=== PATIENT | female | born 1960 | race Caucasian/White ===

== ENCOUNTER 2019-02-12 11:15 | Emergency (ER) | payer BC, OTHER ==
[~2019-02-12 11:15] MED LIST: AMLO-476 PO; GAB300 PO; KET10 PO; LIDO700A25 TP; LOR5 PO; METXL50 PO; [UNRECOGNIZED DRUG - CODE] PO; [UNRECOGNIZED DRUG - REMARK]
--- NOTE | 2019-02-12 11:22 | ER Report ---
History and Physical Time Seen By MD: 11:22 HPI/ROS CHIEF COMPLAINT: Fall down a hole HISTORY OF PRESENT ILLNESS: This is a 58-year-old female presents to the emergency department for a fall down the klein. Patient states she was at work, was looking over her shoulder did not see the forefoot square open hole that was in the floor, walked into it, fell down roughly 12 feet into the hole onto some piping at the bottom of the hole. Apparently the hole was opened for maintenance. No loss of consciousness, no C-spine tenderness, no visual changes no headache. She does have left shoulder, left humerus, left knee and ankle pain. She also has superficial abrasion and hematoma to the right medial thigh into the hamstring area, she has pain to the right posterior hip into the coccyx and into the lumbar. No thoracic pain. No chest pain or shortness of breath. Admits nausea no vomiting. No chest pain. No recent fevers or chills. REVIEW OF SYSTEMS: Constitutional: No fever, no chills. Eyes: No discharge. ENT: No sore throat. Cardiovascular: No chest pain, no palpitations. Respiratory: No cough, no shortness of breath. Gastrointestinal: As above. Genitourinary: No hematuria. Musculoskeletal: As above. Skin: As above. Neurological: No headache. Allergies: Coded Allergies: meperidine (Verified Allergy, Severe, MIGRAINES, 02/12/19) ciprofloxacin (Verified Allergy, Mild, FLU SYMPTOMS, 02/12/19) Home Meds Active Scripts Oxycodone Hcl/Acetaminophen (PERCOCET 5-325 MG TABLET) 1 Each Tablet, 1 EACH PO Q4-6H PRN for PAIN, #10 TAB Prov:[employer] MANAGEMENT MANAGER-BC 02/12/19 Reported Medications Hydrocodone Bit/Acetaminophen (HYDROCODON-ACETAMINOPHEN 5-325) 1 Each Tablet, 1 EACH PO Q8H, TAB 02/12/19 Amlodipine Besylate/Benazepril (Lotrel 09/05 Capsule) 1 Cap Capsule, 1 CAP PO QDAY, 0 Refills 08/06/09 Estrogens,Conj.,Synthetic A (Cenestin) 0.625 Mg Tablet, 0.625 MG PO, 0 Refills 08/06/09 Discontinued Reported Medications [Pain Med Unknown] No Conflict Check, 0 Refills 9/20/09 Past Medical/Surgical History The patient has a past medical and surgical history of hypertension, arthritis, chronic back pain, hysterectomy, right total knee replacement. Reviewed Nurses Notes: Yes Constitutional Vital Sign - Last 24 Hours 02/12/19 02/12/19 02/12/19 02/12/19 11:15 11:23 11:23 11:30 Temp 98.4 Pulse ??? 106 Resp 18 B/P (MAP) 130/76 130/76 (94) 105/59 (74) Pulse Ox 93 O2 Delivery Room Air 02/12/19 02/12/19 02/12/19 02/12/19 11:50 12:45 13:00 13:24 Pulse 97 B/P (MAP) 102/61 (75) 94/50 (65) Pulse Ox 90 O2 Flow Rate 1.5 Physical Exam General Appearance: The patient is alert, has no immediate need for airway protection and no signs of toxicity. Eyes: Pupils equal and round no pallor or injection. ENT, Mouth: Mucous membranes are moist. Respiratory: There are no retractions, lungs are clear to auscultation. Cardiovascular: Regular rate and rhythm. Gastrointestinal: Abdomen is soft and non tender, no masses, bowel sounds normal. Neurological: Alert and oriented S4. Moving all extremities. Following all commands. No focal neuro deficits. Skin: Contusion and small hematoma to the left upper arm around the tricep, bruising, abrasions and hematoma to the right medial thigh into the hamstring area, bruising noted to the coccyx. Musculoskeletal: Neck is supple non tender. Extremities generalized pain to the left knee, pain to the left medial and lateral malleoli, pain to the left proximal humerus and left shoulder, pain with palpation to the coccyx, lumbar and right posterior hip, no crepitus or obvious deformities identified on any of these injuries. DIFFERENTIAL DIAGNOSIS: After history and physical exam differential diagnosis was considered for contusion, fracture, subluxation, hematoma. Medical Decision Making EKG/Imaging Imaging Location: [facility] - [place] Patient: Melina Bianchi : 1960 Visit/Account:[id number] Date of Sevice: 02/12/2019 4 views left shoulder Indication: Fall, Comparison: Unavailable Findings: Alignment is anatomic in the left shoulder without acute fracture or destructive osseous finding. Visualized left lung and left ribs are unremarkable. IMPRESSION: 1. No acute osseous abnormality left shoulder. Report Dictated By: Dameon Zheng MD at 02/12/2019 12:55 PM Report E-Signed By: Dameon Zheng MD at 02/12/2019 12:56 PM WSN:[facility] Location: [facility] [place] Patient: Melina Bianchi : 1960 Visit/Account:[id number] Date of Sevice: 02/12/2019 Three views of the sacrum and coccyx Indication: Fall, pain Comparison: None available. Findings: Mild, symmetric degenerative changes seen in the SI joints. The pubic rami are intact. No definitive evidence of acute fracture. IMPRESSION: 1. No acute osseous abnormality of the sacrum or coccyx as above. Report Dictated By: Dameon Zheng MD at 02/12/2019 12:58 PM Report E-Signed By: Dameon Zheng MD at 02/12/2019 12:59 PM WSN:[facility] Location: [facility] [place] Patient: Melina Bianchi : 1960 Visit/Account:[id number] Date of Sevice: 02/12/2019 EXAMINATION: Lumbar spine, 4 views 02/12/2019 11:36 AM HISTORY: Fell down a shaft. COMPARISON: Separate plain film evaluations today. No prior comparison imaging FINDINGS: Images include AP, lateral, and both obliques. 5 nonrib-bearing lumbar vertebral levels. Lumbar vertebral body heights are well-preserved without fracture or any compression deformity. Minimal endplate spurring at multiple levels. Lower lumbar and lumbosacral facet arthropathy. No acute- appearing bony finding. Atherosclerotic vascular calcifications. IMPRESSION: No acute bony injury in the lumbar spine. Report Dictated By: Kevon Bonner MD at 02/12/2019 12:59 PM Report E-Signed By: Kevon Bonner MD at 02/12/2019 1:02 PM WSN:[email or web address] Location: [facility] [place] Patient: Melina Bianchi : 1960 Visit/Account:[id number] Date of Sevice: 02/12/2019 Left knee Indication: Fall, pain Comparison: None available Findings: 3 views left knee were obtained. Osseous alignment is anatomic. Mild marginal spurring is seen in the medial and lateral joint compartments. Lateral view demonstrates mild spurring superior articular surface of the patella with mild spurring along the origin of the inferior patellar tendon. No joint effusion. IMPRESSION: 1. Mild tricompartmental degenerative change without acute osseous finding. Report Dictated By: Dameon Zheng MD at 02/12/2019 12:57 PM Report E-Signed By: Dameon Zheng MD at 02/12/2019 12:58 PM WSN:[facility] Location: [facility] [place] Patient: Melina Bianchi : 1960 Visit/Account:[id number] Date of Sevice: 02/12/2019 HUMERUS LEFT COMPARISON: None. HISTORY: fall down a hole TECHNIQUE: 2 views of the left humerus FINDINGS: BONES: No significant arthropathy, fracture, malalignment, or significant osseous lesion in the humerus or visualized proximal forearm bones. The visualized ribs are intact. Shoulder and elbow alignment are within normal limits for humerus film technique. SOFT TISSUES: Small calcification adjacent to the humeral head suggestive of chronic calcific tendinopathy of the left rotator cuff.. No visible soft tissue swelling. EFFUSION: None suggested. OTHER: Negative. IMPRESSION: No acute fracture in the left humerus. Report Dictated By: Ej Forrest at 02/12/2019 12:59 PM Report E-Signed By: Ej Forrest at 02/12/2019 1:00 PM Location: [facility] [place] Patient: Melina Bianchi : 1960 Visit/Account:[id number] Date of Sevice: 02/12/2019 HIP RIGHT COMPARISON: None. HISTORY: fall down a hole TECHNIQUE: 1 AP view of the pelvis and an additional view of the right hip FINDINGS: BONES: The femoral head is normally formed and in good alignment with a normally formed acetabulum. No significant arthropathy, fracture, malalignment, or significant osseous lesion. There is advanced facet joint hypertrophy bilaterally and the visualized lower lumbar spine. The SI joints and pubic s ymphysis are not appreciably widened. SOFT TISSUES: Negative. No visible soft tissue swelling. EFFUSION: None suggested. OTHER: Negative. IMPRESSION: No acute fracture in the pelvis or right hip. Report Dictated By: Ej Forrest at 02/12/2019 1:00 PM Report E-Signed By: Ej Forrest at 02/12/2019 1:02 PM WSN:[email or web address] Location: [facility] [place] Patient: Melina Bianchi : 1960 Visit/Account:[id number] Date of Sevice: 02/12/2019 3 views left ankle Indication: Fall Comparison: None Available Findings: Enthesopathy at the insertion the Achilles tendon. Plantar calcaneal spurring. Mild degenerative spurring medial malleolus. Mortise is symmetric. Talar dome is unremarkable. No fracture or acute destructive osseous finding. IMPRESSION: 1. Degenerative change without acute osseous finding. Report Dictated By: Dameon Zheng MD at 02/12/2019 12:56 PM Report E-Signed By: Dameon Zheng MD at 02/12/2019 12:57 PM WSN:[facility] ED Course/Re-evaluation ED Course March patient was admitted to room. A history and physical obtained. Differential diagnoses were considered. An IV was started. Patient was given 4 mg IV Zofran, 4 mg IV morphine, 0.5 mg of Dilaudid, 1 mg Dilaudid. An x-ray of the left shoulder, left humerus, left knee and ankle, right hip, sacrum and lumbar were all negative for any acute osseous abnormalities. Lidocaine was applied to the abrasions, this did provide relief. The patient had multiple contusions, she is already taking hydrocodone 10 mg, I did give her a very small course of oxycodone. I also told her that she needs to follow-up with her primary care provider next week or [facility] should she have recurrent or worsening symptoms return to the ER, she was also placed in a walking boot in the left foot, given crutches. Patient was also instructed to not work this weekend. She expressed understanding, was agreeable with this plan care and discharged home. Decision to Disposition Date: Feb 12, 2019 Decision to Disposition Time: 14:05 Depart Departure Latest Vital Signs Vital Signs Date Time Temp Pulse Resp B/P (MAP) Pulse Ox O2 Delivery O2 Flow Rate FiO2 02/12/19 13:24 1.5 02/12/19 13:00 94/50 (65) 02/12/19 12:45 97 90 02/12/19 11:23 98.4 18 Room Air Impression: Primary Impression: Fall into hole as cause of accidental injury Additional Impressions: Contusion, multiple sites Hematoma Condition: Improved Disposition: HOME OR SELF-CARE Referrals: JO ANN PERKINS (PCP) New Scripts Oxycodone Hcl/Acetaminophen (PERCOCET 5-325 MG TABLET) 1 Each Tablet 1 EACH PO Q4-6H PRN for PAIN, #10 TAB Prov: BEST SMITH-AUSTYN 02/12/19 Departure Forms: ER Transition Record, Medications Reconciliation, Off Work/School Form, School or Work Release?: Work Number of days to be released: 2 Patient Portal Information Patient Instructions: Abrasion (ED), Contusion in Adults (ED), Fall Prevention (ED), Hematoma (ED) Additional Instructions: There were no fractures identified on Xray. You have many bruises, a hematoma and will be sore for several days. Keep the boot on for comfort. You can try the percocet to see if this will provide additional pain relief, do not take your normal hydrocodone with the percocet. Drink plenty of water. Get plenty of rest. No work this weekend. Follow up with your PCP or [facility] in one week if no improvement. Return to the emergency department for any other concerns or worsening symptoms. Problem Qualifiers BEST SMITH-AUSTYN Feb 12, 2019 11:22
[2019-02-12] MEDS ORDERED: HYDR-385 PO (11:39)
[2019-02-12] MEDS ORDERED: LIDOCAINE 4% 15 GM TUBE TP ONE (11:40)
[2019-02-12] MEDS ORDERED: MORPHINE 4 MG/ML SDV IVP ONE (11:40)
[2019-02-12] MEDS ORDERED: HYDROMORPHONE HCL 1 MG/ML SYRINGE IVP ONE ×2 (12:45→13:40)
[2019-02-12 13:00] VITALS: BP 94/50
--- NOTE | 2019-02-12 13:01 | RADIOLOGY IMAGING REPORT ---
FACILITY: [facility] - [place] PATIENT NAME: Melina Bianchi : 1960 MR: [id number] V: [id number] EXAM DATE: ORDERING PHYSICIAN: BEST SMITH TECHNOLOGIST: Location: [facility] [place] Patient: Melina Bianchi : 1960 Visit/Account:[id number] Date of Sevice: 02/12/2019 4 views left shoulder Indication: Fall, Comparison: Unavailable Findings: Alignment is anatomic in the left shoulder without acute fracture or destructive osseous finding. Vi sualized left lung and left ribs are unremarkable. IMPRESSION: 1. No acute osseous abnormality left shoulder. Report Dictated By: Dameon Zheng MD at 02/12/2019 12:55 PM Report E-Signed By: Dameon Zheng MD at 02/12/2019 12:56 PM WSN:[facility]
--- NOTE | 2019-02-12 13:01 | RADIOLOGY IMAGING REPORT ---
FACILITY: [facility] - [place] PATIENT NAME: Melina Bianchi : 1960 MR: [id number] V: [id number] EXAM DATE: ORDERING PHYSICIAN: BEST SMITH TECHNOLOGIST: Location: [facility] [place] Patient: Melina Bianchi : 1960 Visit/Account:[id number] Date of Sevice: 02/12/2019 3 views left ankle Indication: Fall Comparison: None Available Findings: Enthesopathy at the insertion the Achilles tendon. Plantar calcaneal spurring. Mild degenerative spurring medial malleolus. Mortise is symmetric. Talar dome is unremarkable. No fracture or acute destructive osseous finding. IMPRESSION: 1. Degenerative change without acute osseous finding. Report Dictated By: Dameon Zheng MD at 02/12/2019 12:56 PM Report E-Signed By: Dameon Zheng MD at 02/12/2019 12:57 PM WSN:[facility]
--- NOTE | 2019-02-12 13:03 | RADIOLOGY IMAGING REPORT ---
[place] [facility] [place]: Melina Bianchi : 1960 MR: [id number] V: [id number] EXAM DATE: ORDERING PHYSICIAN: BEST SMITH TECHNOLOGIST: Location: [facility] Patient: Melina Bianchi : 1960 Visit/Account:[id number] Date of Sevice: 02/12/2019 Left knee Indication: Fall, pain Comparison: None available Findings: 3 views left knee were obtained. Osseous alignment is anatomic. Mild marginal spurring is seen in the medial and lateral joint compar tments. Lateral view demonstrates mild spurring superior articular surface of the patella with mild spurring along the origin of the inferior patellar tendon. No joint effusion. IMPRESSION: 1. Mild tricompartmental degenerative change without acute osseous finding. Report Dictated By: Dameon Zheng MD at 02/12/2019 12:57 PM Report E-Signed By: Dameon Zheng MD at 02/12/2019 12:58 PM WSN:[facility]
--- NOTE | 2019-02-12 13:04 | RADIOLOGY IMAGING REPORT ---
FACILITY: [facility] PATIENT NAME: Melina Bianchi : 1960 MR: [id number] V: [id number] EXAM DATE: ORDERING PHYSICIAN: BEST SMITH TECHNOLOGIST: Location: [facility] - [place] Patient: Melina Bianchi : 1960 Visit/Account:[id number] Date of Sevice: 02/12/2019 Three views of the sacrum and coccyx Indication: Fall, pain Comparison: None available. Findings: Mild, symmetric degenerative changes seen in the SI joints. The pubic rami are intact. No definitiv e evidence of acute fracture. IMPRESSION: 1. No acute osseous abnormality of the sacrum or coccyx as above. Report Dictated By: Dameon Zheng MD at 02/12/2019 12:58 PM Report E-Signed By: Dameon Zheng MD at 02/12/2019 12:59 PM WSN:[facility]
--- NOTE | 2019-02-12 13:05 | RADIOLOGY IMAGING REPORT ---
[place] [facility] [place]IENT NAME: Melina Bianchi : 1960 MR: [id number] V: [id number] EXAM DATE: ORDERING PHYSICIAN: BEST SMITH TECHNOLOGIST: Location: [facility] Patient: Melina Bianchi : 1960 Visit/Account:[id number] Date of Sevice: 02/12/2019 HUMERUS LEFT COMPARISON: None. HISTORY: fall down a hole TECHNIQUE: 2 views of the left humerus FINDINGS: BONES: No significant arthropathy, fracture, malalignment, or significant osseous lesion in the rita tanya or visualized proximal forearm bones. The visualized ribs are intact. Shoulder and elbow alignmen t are within normal limits for humerus film technique. SOFT TISSUES: Small calcification adjacent to the humeral head suggestive of chronic calcific tendin opathy of the left rotator cuff.. No visible soft tissue swelling. EFFUSION: None suggested. OTHER: Negative. IMPRESSION: No acute fracture in the left humerus. Report Dictated By: Ej Forrest at 02/12/2019 12:59 PM Report E-Signed By: Ej Forrest at 02/12/2019 1:00 PM WSN:ALEXANDRO
--- NOTE | 2019-02-12 13:06 | RADIOLOGY IMAGING REPORT ---
FACILITY: [facility] PATIENT NAME: Melina Bianchi : 1960 MR: [id number] V: [id number] EXAM DATE: ORDERING PHYSICIAN: BEST SMITH TECHNOLOGIST: Location: [facility] Patient: Melina Bianchi : 1960 Visit/Account:[id number] Date of Sevice: 02/12/2019 HIP RIGHT COMPARISON: None. HISTORY: fall down a hole TECHNIQUE: 1 AP view of the pelvis and an additional view of the right hip FINDINGS: BONES: The femoral head is normally formed and in good alignment with a normally formed acetabulum. No significant arthropathy, fracture, malalignment, or significant osseous lesion. There is advanced facet joint hypertrophy bilaterally and the visualized lower lumbar spine. The SI joints and pubic symphysis are not appreciably widened. SOFT TISSUES: Negative. No visible soft tissue swelling. EFFUSION: None suggested. OTHER: Negative. IMPRESSION: No acute fracture in the pelvis or right hip. Report Dictated By: Ej Forrest at 02/12/2019 1:00 PM Report E-Signed By: Ej Forrest at 02/12/2019 1:02 PM WSN:ALEXANDRO
--- NOTE | 2019-02-12 13:07 | RADIOLOGY IMAGING REPORT ---
FACILITY: [facility] [place] PATIENT NAME: Melina Bianchi : 1960 MR: [id number] V: [id number] EXAM DATE: ORDERING PHYSICIAN: BEST SMITH TECHNOLOGIST: Location: [facility] [place] Patient: Melina Bianchi : 1960 Visit/Account:[id number] Date of Sevice: 02/12/2019 EXAMINATION: Lumbar spine, 4 views 02/12/2019 11:36 AM HISTORY: Fell down a shaft. COMPARISON: Separate plain film evaluations today. No prior comparison imaging FINDINGS: Images include AP, lateral, and both obliques. 5 nonrib-bearing lumbar vertebral levels. Lumbar vertebral body heights are well-preserved without fracture or any compression deformity. Min imal endplate spurring at multiple levels. Lower lumbar and lumbosacral facet arthropathy. No acute -appearing bony finding. Atherosclerotic vascular calcifications. IMPRESSION: No acute bony injury in the lumbar spine. Report Dictated By: Kevon Bonner MD at 02/12/2019 12:59 PM Report E-Signed By: Kevon Bonner MD at 02/12/2019 1:02 PM WSN:[email or web address]
[2019-02-12] MEDS ORDERED: OXYC-865 PO (13:53)
== END 2019-02-12 14:10 | disposition home or self-care (01) ==
LOC: ER 11:20
DX: S40.022A Contusion of left upper arm, initial encounter (principal); W17.2XXA Fall into hole, initial encounter
CPT/HCPCS: 72120; 72220; 73030; 73060; 73502; 73564; 73610; 96374; 96375; 96376; 99284; J1170; J2270; L0172

== ENCOUNTER → 2019-03-03 | Outpatient (CLI) | payer OTHER ==
[~2019-03-03] MED LIST changes: +HYDR-385 PO; +OXYC-865 PO
--- NOTE | 2019-03-03 13:47 | RADIOLOGY IMAGING REPORT ---
FACILITY: [facility] [place] PATIENT NAME: Melina Bianchi : 1960 MR: [id number] V: [id number] EXAM DATE: [id number] ORDERING PHYSICIAN: JO ANN PERKINS TECHNOLOGIST: Location: [facility] Patient: Melina Bianchi : 1960 Visit/Account:[id number] Date of Sevice: 03/03/2019 Exam type: ANKLE 3 VIEW MIN LEFT History: Trauma Comparison: February 12, 2019. Findings: Three views were submitted.. Enthesopathic changes are again seen insertion the Achilles tendon. Th ere is a left plantar calcaneal spur. There is a tiny bony density projecting just anterior to the d istal tibia on the lateral view. This could conceivably represent tiny avulsion fracture fragment. The mortise appears intact. Mild degenerative spurring of the medial malleolus again seen. IMPRESSION: 1. There is a tiny bony density projecting just anterior to the distal left tibia only seen on the l ateral view this could represent a tiny avulsion fracture fragment or possibly a peritendinous calcif ication Other degenerative changes as described Report Dictated By: Iza Valenzuela MD at 03/03/2019 1:24 PM Report E-Signed By: Iza Valenzuela MD at 03/03/2019 1:41 PM WSN:CESAR[facility]
--- NOTE | 2019-03-03 13:47 | RADIOLOGY IMAGING REPORT ---
FACILITY: [facility] - [place] PATIENT NAME: Melina Bianchi : 1960 MR: [id number] V: [id number] EXAM DATE: ORDERING PHYSICIAN: JO ANN PERKINS TECHNOLOGIST: Location: [facility] Patient: Melina Bianchi : 1960 Visit/Account:[id number] Date of Sevice: 03/03/2019 Exam type: HIPS BILATERAL History: Follow-up from fall, hip pain bilaterally Comparison: Arch 2018. Findings: An AP view the pelvis and single additional views of both hips were submitted there is no evidence of acute fracture or dislocation involving either hip. Degenerative changes at the pubic symphysis and visualized lower lumbar spine again noted. IMPRESSION: 1. No evidence of acute fracture-dislocation involving either hip. If the Patient's pain continues MR may be helpful Report Dictated By: Iza Valenzuela MD at 03/03/2019 1:41 PM Report E-Signed By: Iza Valenzuela MD at 03/03/2019 1:44 PM WSN:CESARIO
--- NOTE | 2019-03-03 13:50 | RADIOLOGY IMAGING REPORT ---
FACILITY: [facility] PATIENT NAME: Melina Bianchi : 1960 MR: [id number] V: [id number] EXAM DATE: ORDERING PHYSICIAN: JO ANN PERKINS TECHNOLOGIST: Location: [facility] Patient: Melina Bianchi : 1960 Visit/Account:[id number] Date of Sevice: 03/03/2019 Exam type: HUMERUS LEFT History: Follow-up from fall, painful left humeral mass Comparison: February 12, 2019. Findings: Two views were submitted. Study is limited due to thick overlying soft tissue. No definite fracture or dislocation is seen. IMPRESSION: 1. Limited study due to extensive overlying soft tissue however no gross evidence of acute fracture or dislocation involving the left humerus. If the patient's pain does persist an MR is recommended Report Dictated By: Iza Valenzuela MD at 03/03/2019 1:44 PM Report E-Signed By: Iza Valenzuela MD at 03/03/2019 1:46 PM WSN:CESARIO
--- NOTE | 2019-03-03 13:52 | RADIOLOGY IMAGING REPORT ---
FACILITY: [facility] [place] PATIENT NAME: Melina Bianchi : 1960 MR: [id number] V: [id number] EXAM DATE: ORDERING PHYSICIAN: JO ANN PERKINS TECHNOLOGIST: Location: [facility] [place] Patient: Melina Bianchi : 1960 Visit/Account:[id number] Date of Sevice: 03/03/2019 Exam type: L-SPINE 2 OR 3 VIEW History: Follow-up from fall Comparison: February 12, 2019. Findings: AP and lateral images were submitted There is no evidence of acute fractures or subluxations. There is mild to moderate disc space narrow ing at T12-L1 with anterior spurring. There is mild disc space narrowing at L5-S1. Degenerative fac et joint changes are most prominent from L3 to S1 There are moderate spondylotic changes in the visualized lower thoracic spine. If the patient does h ave pain in the thoracic spine a formal thoracic spine series recommended. Incidental noted are vasc ular calcifications IMPRESSION: 1. Spondylotic changes of the thoracolumbar spine with no gross evidence of acute fractures or sublu xations Report Dictated By: Iza Valenzuela MD at 03/03/2019 1:46 PM Report E-Signed By: Iza Valenzuela MD at 03/03/2019 1:48 PM WSN:CESARIO
== END ==
LOC: RAD 12:14
PROVIDERS: ATTEND Nurse Practitioner Family
DX: S40.022A Contusion of left upper arm, initial encounter (principal); W17.89XD Other fall from one level to another, subsequent encounter
CPT/HCPCS: 72100; 73522

== ENCOUNTER → 2019-05-10 | Outpatient (CLI) | payer OTHER ==
--- NOTE | 2019-05-10 17:54 | RADIOLOGY IMAGING REPORT ---
FACILITY: [facility] - [place] PATIENT NAME: Melina Bianchi : 1960 MR: [id number] V: [id number] EXAM DATE: ORDERING PHYSICIAN: JO ANN PERKINS TECHNOLOGIST: Location: [facility] [place] Patient: Melina Bianchi : 1960 Visit/Account:[id number] Date of Sevice: 05/10/2019 US SOFT TISSUE NON-SPECIFIC History: Palpable lump lower back. Procedure: There has been satisfactory grayscale ultrasonic evaluation of the lower lumbar spine midl ine. Comparison study: None. Findings: In the subcutaneous tissues there is a 3.6 x 2.6 x 2.3 cm hypoechoic structure. Its etiolog y is uncertain. In this patient status post fall with hematoma seems most likely, but correlation wit h physical exam is recommended. IMPRESSION: In the subcutaneous tissues of the lower lumbar region there is a prominent hypoechoic mi xed echogenic mass. In this patient status post fall this could represent a site of inflammation or h ematoma. Correlation clinical exam is recommended. Report Dictated By: Darwin Vee MD at 05/10/2019 5:48 PM Report E-Signed By: Darwin Vee MD at 05/10/2019 5:50 PM WSN:[id number]
== END ==
LOC: US 05-04 13:04
PROVIDERS: ATTEND Nurse Practitioner Family
DX: R19.00 Intra-abdominal and pelvic swelling, mass and lump, unspecified site (principal)
CPT/HCPCS: 76999